=== PATIENT | female | born 1980 | race Caucasian/White ===

== ENCOUNTER 2019-02-08 06:45 | Emergency (ER) | payer SELFPAY ==
[~2019-02-08] VITALS: Ht 165.1 cm; Wt 72.6 kg
[2019-02-08 06:51] VITALS: BP 96/81
[2019-02-08] MEDS ORDERED: IBUPROFEN 600 MG TABLET ONE (07:23)
[2019-02-08] MEDS ORDERED: IBUPROFEN 600 MG TABLET PO ONE (07:30)
== END 2019-02-08 07:43 | disposition home or self-care (01) ==
LOC: ED 07:20
DX: J02.0 Streptococcal pharyngitis (principal)
CPT/HCPCS: 99283